=== PATIENT | male | born 1985 | race Caucasian/White ===

== ENCOUNTER 2018-06-19 08:50 | Emergency (ER) | payer MEDICAID ==
[~2018-06-19] VITALS: Ht 185.4 cm; Wt 72.6 kg
--- NOTE | 2018-06-19 09:27 | Emergency Room Report ---
History of Present Illness General Chief Complaint: Seizure Source: Patient Present Illness HPI Patient presents with reported seizure activity approximately 1 hour prior to arrival Patient is here from [facility] in a rehabilitation facility Reports that he has had alcohol withdrawal seizures in the past He has also had Valium withdrawal seizures in the past Currently felt some discomfort to the left temporal area after his seizure Otherwise denies any chest pain or shortness of breath He had some mild palpitation sensation Patient reports that he had fairly extensive workup about 3 months ago during his last seizure activity Allergies: Coded Allergies: TRAMADOL (Verified Allergy, Unknown, 06/19/18) Patient History Past Medical History: see triage record Pertinent Family History: none Reviewed Nursing Documentation: PMH: Agreed; PSxH: Agreed Nursing Documentation-PMH Past Medical History: No History, Except For Hx Seizures: Yes - from alcohol withdrawal Review of Systems All Other Systems: negative except mentioned in HPI Physical Exam Vital Signs Date Time Temp Pulse Resp B/P (MAP) Pulse Ox O2 Delivery O2 Flow Rate FiO2 06/19/18 08:54 97.5 81 18 133/86 97 Room Air Sp02 EP Interpretation: reviewed, normal General Appearance: well appearing, no apparent distress Head: normocephalic, atraumatic - Patient points to left temporal area for discomfort Eyes: bilateral eye PERRL, bilateral eye EOMI ENT: hearing grossly normal, normal pharynx, TMs + canals normal, uvula midline Neck: full range of motion, supple, no meningismus, no bony tend Respiratory: lungs clear, normal breath sounds, no rhonchi, no respiratory distress, no retraction, no accessory muscle use Cardiovascular #1: normal peripheral pulses, regular rate, rhythm, no edema, no gallop, no JVD, no murmur Gastrointestinal: normal bowel sounds, non tender, soft, no mass, no organomegaly, non-distended, no guarding, no hernia, no pulsatile mass, no rebound Genitourinary: no CVA tenderness Musculoskeletal: normal inspection Neurologic: oriented x3, responsive, 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 as tested, motor strength/ tone normal, sensory intact Psychiatric: mood/affect normal Skin: no rash, warm/dry, palpation normal, other - Mild nasal abrasion to bridgeof nose Lymphatic: normal inspection, no adenopathy Medical Decision Making Diagnostic Impression: Primary Impression: Seizure disorder ER Course Multiple differentials considered Patient withdraws close correlation with alcohol withdrawal in his seizure activity Reports extensive previous workup At this time blood work was initiated to evaluate for further pathology All within normal limits Patient does not appear to be in acute alcohol withdrawal symptoms Heart rate is normal there is lack of tremors Patient is awake and alert At this time stable for close follow-up, Labs Test 06/19/18 09:38 White Blood Count 11.2 K/UL (4.8-10.8) Red Blood Count 4.15 M/UL (4.70-6.10) Hemoglobin 13.3 G/DL (14.2-18.0) Hematocrit 39.1 % (42.0-52.0) Mean Corpuscular Volume 94 FL (80-99) Mean Corpuscular Hemoglobin 32.0 PG (27.0-31.0) Mean Corpuscular Hemoglobin Concent 33.9 G/DL (32.0-36.0) Red Cell Distribution Width 11.6 % (11.6-14.8) Platelet Count 321 K/UL (150-450) Mean Platelet Volume 6.2 FL (6.5-10.1) Neutrophils (%) (Auto) 77.0 % (45.0-75.0) Lymphocytes (%) (Auto) 16.7 % (20.0-45.0) Monocytes (%) (Auto) 5.0 % (1.0-10.0) Eosinophils (%) (Auto) 0.6 % (0.0-3.0) Basophils (%) (Auto) 0.7 % (0.0-2.0) Sodium Level 137 MMOL/L (136-145) Potassium Level 4.0 MMOL/L (3.5-5.1) Chloride Level 102 MMOL/L (98-107) Carbon Dioxide Level 27 MMOL/L (21-32) Anion Gap 8 mmol/L (5-15) Blood Urea Nitrogen 8 mg/dL (7-18) Creatinine 0.8 MG/DL (0.55-1.30) Estimat Glomerular Filtration Rate > 60 mL/min (>60) Glucose Level 91 MG/DL (74-106) Calcium Level 8.9 MG/DL (8.5-10.1) Rhythm Strip Diag. Results EP Interpretation: yes Rate: 60 Rhythm: NSR, no PVC's, no ectopy Last Vital Signs Date Time Temp Pulse Resp B/P (MAP) Pulse Ox O2 Delivery O2 Flow Rate FiO2 06/19/18 08:54 97.5 81 18 133/86 97 Room Air Status: improved Disposition: HOME, SELF-CARE Condition: Improved Scripts No Active Prescriptions or Reported Meds Additional Instructions: Patient is provided with the discharge instructions notified to follow up with primary doctor in the next 2-3 days otherwise return to the er with any worsening symptoms. Please note that this report is being documented using [email or web address] technology. This can lead to erroneous entry secondary to incorrect interpretation by the dictating instrument. Chely Pelayo DO Jun 19, 2018 09:27
[2018-06-19] MEDS ORDERED: LORazepam 1mg tab ORAL ONE ×2 (09:30→10:30)
[2018-06-19 09:50] LABS: BASOPHILS % (AUTO) 0.7 % (0.0-2.0); EOSINOPHILS % (AUTO) 0.6 % (0.0-3.0); HEMATOCRIT 39.1 % (42.0-52.0); HEMOGLOBIN 13.3 G/DL (14.2-18.0); LYMPHOCYTES % (AUTO) 16.7 % (20.0-45.0); MEAN CORPUSCULAR VOLUME 94 FL (80-99); PLATELET COUNT 321 K/UL (150-450); RED BLOOD COUNT 4.15 M/UL (4.70-6.10); RED CELL DISTRIBUTION WIDTH 11.6 % (11.6-14.8); WHITE BLOOD COUNT 11.2 K/UL (4.8-10.8)
[2018-06-19 10:06] LABS: ANION GAP 8 mmol/L (5-15); BLOOD UREA NITROGEN 8 mg/dL (7-18); CALCIUM 8.9 MG/DL (8.5-10.1); CARBON DIOXIDE 27 MMOL/L (21-32); CHLORIDE 102 MMOL/L (98-107); CREATININE 0.8 MG/DL (0.55-1.30); SODIUM 137 MMOL/L (136-145)
[2018-06-19 10:24] VITALS: BP 124/74
[2018-06-19 10:34] VITALS: BP 126/80
== END 2018-06-19 10:34 | disposition home or self-care (01) ==
LOC: EMR 09:31
DX: G40.909 Epilepsy, unspecified, not intractable, without status epilepticus (principal); Z88.6 Allergy status to analgesic agent; S00.31XA Abrasion of nose, initial encounter; X58.XXXA Exposure to other specified factors, initial encounter; Y92.9 Unspecified place or not applicable
CPT/HCPCS: 36415; 80048; 85025; 99283

== ENCOUNTER 2018-11-06 11:07 | Emergency (ER) | payer MEDICAID ==
[~2018-11-06] VITALS: Ht 185.4 cm; Wt 80.3 kg
[2018-11-06] MEDS ORDERED: IBUPROFEN600 MG ORAL (12:21)
[2018-11-06 15:01] VITALS: BP 108/71
[2018-11-06 15:02] VITALS: BP 108/71
--- NOTE | 2018-11-06 15:02 | NUR ---
ER DISCHARGE NOTE: Patient is cleared to be discharged per ERMD, pt is aox4, on room air, with stable vital signs. pt was given dc and prescription instructions, pt was able to verbalize understanding, pt is able to ambulate with steady gait. pt took all belongings.
--- NOTE | 2018-11-06 16:11 | Emergency Room Report ---
History of Present Illness General Chief Complaint: Pain Source: Patient Present Illness HPI Patient is a 33-year-old male presented after increased left-sided knee pain. Patient had prior injury to his knee and had previous ACL surgery. Patient stated this has been long-standing and he had noticed it was having increased swelling and discomfort when running marathons as well as playing basketball. Patient denies any recent injury. He had noted some intermittent swelling. He denies any ligamentous instability. Allergies: Coded Allergies: CODEINE (Verified Allergy, Unknown, 07/20/18) TRAMADOL (Verified Allergy, Unknown, 06/19/18) Patient History Reviewed Nursing Documentation: PMH: Agreed; PSxH: Agreed Nursing Documentation-PMH Past Medical History: No History, Except For Hx Seizures: Yes - from alcohol withdrawal Review of Systems All Other Systems: negative except mentioned in HPI Physical Exam Vital Signs Date Time Temp Pulse Resp B/P (MAP) Pulse Ox O2 Delivery O2 Flow Rate FiO2 11/06/18 11:23 98.2 59 16 97 Room Air 11/06/18 15:01 108/71 General Appearance: well appearing, no apparent distress, alert, GCS 15 Head: normocephalic, atraumatic ENT: hearing grossly normal, normal voice Neck: full range of motion, supple Respiratory: no respiratory distress, speaking full sentences Cardiovascular #1: normal inspection, no edema Gastrointestinal: normal inspection Musculoskeletal: no calf tenderness Neurologic: normal gait Psychiatric: mood/affect normal Skin: no rash Medical Decision Making Diagnostic Impression: Primary Impression: Knee pain, chronic ER Course . Patient presented for knee pain. Differential diagnosis include was not limited to meniscal injury, ligamentous damage, arthritis among others. Patient has a benign exam and does not appear to require any further imaging or laboratory testing at this time. Appear to have any evidence of acute injury requiring x-ray imaging. Patient appears to be able to ambulate well. Injury appears chronic. Patient was advised to follow-up for primary care referral to orthopedics. He was advised to return if he had any worsening of condition or other concerns. Last Vital Signs Date Time Temp Pulse Resp B/P (MAP) Pulse Ox O2 Delivery O2 Flow Rate FiO2 11/06/18 15:02 98.2 70 16 108/71 97 Room Air Status: improved Disposition: HOME, SELF-CARE Condition: Stable Scripts Ibuprofen* (MOTRIN*) 600 Mg Tablet 600 MG ORAL THREE TIMES A DAY, #30 TAB 0 Refills Prov: Isidro Newman MD 11/06/18 Referrals: NOT CHOSEN IPA/MD,REFERRING (PCP) Patient Instructions: Knee Pain, [id number] Additional Instructions: Follow up with primary care for orthopedics referral. Isidro Newman MD November 06, 2018 16:11
== END 2018-11-06 15:02 | disposition home or self-care (01) ==
LOC: EMR 12:21
DX: M25.562 Pain in left knee (principal); G89.29 Other chronic pain; Z88.5 Allergy status to narcotic agent
CPT/HCPCS: 99281

== ENCOUNTER 2019-01-11 22:54 | Emergency (ER) | payer MEDICAID ==
[~2019-01-11] VITALS: Ht 185.4 cm; Wt 81.6 kg
[~2019-01-11 22:54] MED LIST: IBUPROFEN600 MG ORAL
[2019-01-11 22:58] VITALS: BP 117/75
--- NOTE | 2019-01-11 23:11 | NUR ---
ED Nurse Note: Pt ambulated to ED from home c/o 4/10 L knee pain that started x3 days ago. Pt denies recent trauma but had a ACL-meniscus repair surgury 12yrs ago. Pt is A&Ox4, VSS
[2019-01-11] MEDS ORDERED: HYDROcodone/Acetamin 5/325 tab ORAL ONE (23:45)
--- NOTE | 2019-01-12 00:03 | Emergency Room Report ---
History of Present Illness General Chief Complaint: Lower Extremity Injury Source: Patient Present Illness HPI This is a 33-year-old male who presents with chief complaint of left knee pain. He has orthoscopic surgery to his ACL in the left knee before. He started a new job where he works in the [employer] and standing on his feet a lot. At the end of the day he started having some throbbing knee pain. This been ongoing for about a week. They got worse after he played some basketball over the weekend. Pain is diffuse in nature. Throbbing in nature. Worse with walking. He felt his knee giving out if he walks too much. No fevers or chills. No swelling. No direct trauma. Pain is 8 out of 10. Allergies: Coded Allergies: CODEINE (Verified Allergy, Unknown, 07/20/18) TRAMADOL (Verified Allergy, Unknown, 06/19/18) Patient History Past Medical History: see triage record, old chart reviewed Past Surgical History: other Pertinent Family History: none Social History: Denies: smoking Immunizations: other Reviewed Nursing Documentation: PMH: Agreed; PSxH: Agreed Nursing Documentation-PMH Hx Seizures: Yes - from alcohol withdrawal Review of Systems Eye: Denies: eye pain, blurred vision ENT: Denies: ear pain, nose congestion, throat swelling Respiratory: Denies: cough, shortness of breath Cardiovascular: Denies: chest pain, palpitations Gastrointestinal: Denies: abdominal pain, diarrhea, nausea, vomiting Musculoskeletal: Reports: joint pain; Denies: back pain Skin: Denies: rash Neurological: Denies: headache, numbness Endocrine: Denies: increased thirst, increased urine Hematologic/Lymphatic: Denies: easy bruising All Other Systems: negative except mentioned in HPI Physical Exam Vital Signs Date Time Temp Pulse Resp B/P (MAP) Pulse Ox O2 Delivery O2 Flow Rate FiO2 01/11/19 22:58 98.1 60 16 117/75 (89) 98 Room Air Vitals normal Sp02 EP Interpretation: reviewed, normal General Appearance: well appearing, no apparent distress, alert Head: normocephalic, atraumatic Eyes: bilateral eye PERRL, bilateral eye EOMI ENT: hearing grossly normal, normal pharynx Neck: full range of motion, supple, no meningismus Respiratory: chest non-tender, lungs clear, normal breath sounds Cardiovascular #1: regular rate, rhythm, no murmur Gastrointestinal: normal bowel sounds, non tender, no mass, no organomegaly, no bruit, non-distended Musculoskeletal: back normal, gait/station normal, normal range of motion, other - Left knee: Diffuse tenderness anteriorly. Knee is stable. No effusion. Psychiatric: mood/affect normal Medical Decision Making Diagnostic Impression: Primary Impression: Sprain of left knee Qualified Codes: S83.92XA - Sprain of unspecified site of left knee, initial encounter ER Course Patient with left knee pain. no frx or dislocation Other X-Ray Diagnostic Results Other X-Ray Diagnostic Results : X-Ray ordered: left knee xrays # of Views/Limited Vs Complete: 3 View Indication: Pain EP Interpretation: Yes Interpretation: no dislocation, no soft tissue swelling, no fractures Impression: No acute disease Electronically Signed by: Iain Castro MD Last Vital Signs Date Time Temp Pulse Resp B/P (MAP) Pulse Ox O2 Delivery O2 Flow Rate FiO2 01/11/19 22:58 98.1 60 16 117/75 (89) 98 Room Air Status: improved Disposition: HOME, SELF-CARE Condition: Stable Scripts Ibuprofen* (MOTRIN*) 600 Mg Tablet 600 MG ORAL THREE TIMES A DAY, #30 TAB 0 Refills Prov: Iain Castro MD 01/12/19 Referrals: NON PHYSICIAN (PCP) Patient Instructions: Knee Sprain Additional Instructions: Elevate leg. Ice pack to the area. Wear your knee brace. Follow-up with your doctor in a week. You may need an MRI if continue with pain. Return if worse. Iain Castro MD Jan 12, 2019 00:03
[2019-01-12] MEDS ORDERED: IBUPROFEN600 MG ORAL (00:35)
--- NOTE | 2019-01-12 00:42 | NUR ---
ER DISCHARGE NOTE: Patient is cleared to be discharged per ERMD, pt is aox4, on room air, with stable vital signs. pt was given dc and prescription instructions, pt was able to verbalize understanding, pt id band removed. pt is able to ambulate with steady gait on crutches. pt took all belongings.
--- NOTE | 2019-01-12 11:58 | Diagnostic Imaging Report ---
Indication: Knee pain, trauma one week ago Technique: 4 views of the left knee Comparison: None Findings: There is evidence of prior ligament repair. Surgical hardware is seen at the edge of the lateral distal femur and within the proximal tibia. There are degenerative changes of the medial joint compartment. There is a suprapatellar effusion. No acute fractures. No dislocations. Impression: Positive for joint effusion No acute bony trauma Evidence of prior surgery
== END 2019-01-12 00:40 | disposition home or self-care (01) ==
LOC: EMR 23:22
DX: S83.92XA Sprain of unspecified site of left knee, initial encounter (principal); X58.XXXA Exposure to other specified factors, initial encounter; Y92.9 Unspecified place or not applicable; Z88.6 Allergy status to analgesic agent
CPT/HCPCS: 99283

== ENCOUNTER 2019-02-13 15:23 | Emergency (ER) | payer MEDICAID ==
[~2019-02-13] VITALS: Ht 185.4 cm; Wt 79.4 kg
[2019-02-13 15:42] VITALS: BP 114/69
[2019-02-13] MEDS ORDERED: NKM (15:45)
--- NOTE | 2019-02-13 15:50 | NUR ---
ED Nurse Note: Patient walked into ED c/o RLQ abdominal pain, 09/14 at this time. patient reports that the pain started about a week ago. patient denies any nausea/vomiting/diarrhea. patient is alert awake x4 ambulatory, breathing unlabored and even.
--- NOTE | 2019-02-13 15:53 | NUR ---
ED Nurse Note: patient reports the pain ranges from 3-5 out of 10.
[2019-02-13] MEDS ORDERED: Isovue-300 100ml vial INJ PRN (16:15)
[2019-02-13] MEDS ORDERED: DiphenhydrAMINE 50mg/ml Inj IVP ONE (16:15)
--- NOTE | 2019-02-13 16:22 | Emergency Room Report ---
History of Present Illness General Chief Complaint: Abdominal Pain Source: Patient Present Illness HPI 33-year-old male presents with right middle abdominal pain achy in nature that started 7 days ago, no aggravating or relieving factors, severity is moderate, it lasts up to an hour or so, patient states it intimately comes and goes without any provocative factors. Patient denies any fevers chills chest pain shortness of breath diarrhea or dysuria patient denies any testicular pain patient presents for evaluation. Allergies: Coded Allergies: CODEINE (Verified Allergy, Unknown, 02/13/19) TRAMADOL (Verified Allergy, Unknown, 02/13/19) Patient History Past Medical History: see triage record Reviewed Nursing Documentation: PMH: Agreed; PSxH: Agreed Nursing Documentation-PMH Past Medical History: No History, Except For Hx Seizures: Yes - from alcohol withdrawal Review of Systems All Other Systems: negative except mentioned in HPI Physical Exam Vital Signs Date Time Temp Pulse Resp B/P (MAP) Pulse Ox O2 Delivery O2 Flow Rate FiO2 02/13/19 15:42 98.8 60 16 114/69 98 Room Air Sp02 EP Interpretation: reviewed, normal General Appearance: well appearing, no apparent distress, alert Head: normocephalic, atraumatic Eyes: bilateral eye PERRL, bilateral eye EOMI ENT: uvula midline, moist mucus membranes Neck: supple, thyroid normal, supple/symm/no masses Respiratory: lungs clear, no respiratory distress, no retraction, no accessory muscle use Cardiovascular #1: normal peripheral pulses, regular rate, rhythm, no edema, no gallop, no murmur Gastrointestinal: non tender, soft, no guarding, no rebound Musculoskeletal: normal inspection Neurologic: alert, oriented x3 Psychiatric: mood/affect normal Skin: no rash, warm/dry Medical Decision Making ER Course 33-year-old male presents with mid right lower abdominal pain, on the differential diagnosis includes appendicitis, diverticulitis, stump appendicitis , cholecystitis Patient with a negative Suárez's, negative labs, negative CT low suspicion for acute emergent intra-abdominal processes, patient's pain is well controlled, repeat abdominal exam patient's abdomen is soft nontender, will disposition patient home with return precautions Laboratory Tests Test 02/13/19 16:20 White Blood Count 7.8 K/UL (4.8-10.8) Red Blood Count 4.78 M/UL (4.70-6.10) Hemoglobin 14.4 G/DL (14.2-18.0) Hematocrit 43.5 % (42.0-52.0) Mean Corpuscular Volume 91 FL (80-99) Mean Corpuscular Hemoglobin 30.2 PG (27.0-31.0) Mean Corpuscular Hemoglobin Concent 33.2 G/DL (32.0-36.0) Red Cell Distribution Width 11.6 % (11.6-14.8) Platelet Count 193 K/UL (150-450) Mean Platelet Volume 6.9 FL (6.5-10.1) Neutrophils (%) (Auto) 61.8 % (45.0-75.0) Lymphocytes (%) (Auto) 29.1 % (20.0-45.0) Monocytes (%) (Auto) 6.7 % (1.0-10.0) Eosinophils (%) (Auto) 1.7 % (0.0-3.0) Basophils (%) (Auto) 0.7 % (0.0-2.0) Prothrombin Time 11.4 SEC (9.30-11.50) Prothrombin Time INR 1.1 (0.9-1.1) PTT 25 SEC (23-33) Urine Color Pale yellow Urine Appearance Clear Urine pH 7 (4.5-8.0) Urine Specific [place] 1.010 (1.005-1.035) Urine Protein Negative (NEGATIVE) Urine Glucose (UA) Negative (NEGATIVE) Urine Ketones Negative (NEGATIVE) Urine Blood Negative (NEGATIVE) Urine Nitrite Negative (NEGATIVE) Urine Bilirubin Negative (NEGATIVE) Urine Urobilinogen Normal MG/DL (0.0-1.0) Urine Leukocyte Esterase Negative (NEGATIVE) Sodium Level 138 MMOL/L (136-145) Potassium Level 3.9 MMOL/L (3.5-5.1) Chloride Level 103 MMOL/L (98-107) Carbon Dioxide Level 30 MMOL/L (21-32) Anion Gap 5 mmol/L (5-15) Blood Urea Nitrogen 18 mg/dL (7-18) Creatinine 1.2 MG/DL (0.55-1.30) Estimate Glomerular Filtration Rate > 60 mL/min (>60) Glucose Level 88 MG/DL (74-106) Calcium Level 9.5 MG/DL (8.5-10.1) Total Bilirubin 0.5 MG/DL (0.2-1.0) Aspartate Amino Transferase (AST) 19 U/L (15-37) Alanine Aminotransferase (ALT) 25 U/L (12-78) Alkaline Phosphatase 99 U/L (46-116) Total Protein 7.6 G/DL (6.4-8.2) Albumin 4.5 G/DL (3.4-5.0) Globulin 3.1 g/dL Albumin/Globulin Ratio 1.5 (1.0-2.7) Lipase 115 U/L (73-393) Urine Opiates Screen Negative (NEGATIVE) Urine Barbiturates Screen Negative (NEGATIVE) Phencyclidine (PCP) Screen Negative (NEGATIVE) Urine Amphetamines Screen Negative (NEGATIVE) Urine Benzodiazepines Screen Negative (NEGATIVE) Urine Cocaine Screen Negative (NEGATIVE) Urine Marijuana (THC) Screen Negative (NEGATIVE) EKG Diagnostic Results EKG Time: 16:22 EP Interpretation: NSR, rate 61, QTc 392, no acute ST elevations normal axis Rate: normal Rhythm: NSR ST Segments: no acute changes Rhythm Strip Diag. Results Rhythm Strip Time: 18:00 EP Interpretation: yes Rate: 84 Rhythm: NSR, no PVC's, no ectopy Chest X-Ray Diagnostic Results Chest X-Ray Diagnostic Results : Chest X-Ray Ordered: Yes # of Views/Limited/Complete: 1 View Indication: Other - abdominal pain EP Interpretation: Yes Interpretation: no acute cardiopulmonary disease Impression: No acute disease Electronically Signed by: Vincent Carlton MD CT/MRI/US Diagnostic Results CT/MRI/US Diagnostic Results : Impression EXAM: CT Abdomen and Pelvis With Intravenous Contrast CLINICAL HISTORY: PAIN TECHNIQUE: Axial computed tomography images of the abdomen and pelvis with intravenous contrast. CTDI is 0.15, 12.77 mGy and DLP is 678 mGy-cm. One or more of the following dose reduction techniques were used: automated exposure control, adjustment of the mA and/or kV according to patient size, use of iterative reconstruction technique. COMPARISON: No relevant prior studies available. FINDINGS: Lung bases: Unremarkable. No mass. No consolidation. ABDOMEN: Liver: Subsequent centimeter foci of hypoattenuation in the liver are too small to characterize. Gallbladder and bile ducts: Unremarkable. No calcified stones. Pancreas: Unremarkable. Spleen: Unremarkable. Adrenals: Unremarkable. Kidneys and ureters: Unremarkable. No solid mass. No hydronephrosis. Stomach and bowel: Unremarkable. Bowel is nondilated. PELVIS: Appendix: No findings to suggest acute appendicitis. Bladder: Unremarkable. Reproductive: Unremarkable as visualized. ABDOMEN and PELVIS: Intraperitoneal space: Unremarkable. No free air. Bones/joints: No acute osseous abnormality. Soft tissues: Unremarkable. Vasculature: Unremarkable. No abdominal aortic aneurysm. Lymph nodes: Unremarkable. IMPRESSION: No acute findings. Radiologist: Deja Juares MD Electronically Signed: 02/13/19 17:57 Study ready at 17:36 and initial results transmitted at 17:57 Last Vital Signs Date Time Temp Pulse Resp B/P (MAP) Pulse Ox O2 Delivery O2 Flow Rate FiO2 02/13/19 15:54 60 16 Room Air 02/13/19 15:42 98.8 114/69 (84) 98 Disposition: HOME, SELF-CARE Condition: Stable Scripts Famotidine (PEPCID AC) 20 Mg Tablet 20 MG PO BID, #60 TAB Prov: Vincent Carlton MD 02/13/19 Naproxen* (NAPROSYN*) 250 Mg Tablet 250 MG ORAL BID PRN for For Pain, #20 TAB 0 Refills Prov: Vincent Carlton MD 02/13/19 Referrals: [facility] Derrell Gomez. [facility] Patient Instructions: Abdominal Pain, Adult Additional Instructions: The patient was provided with discharge instructions, notified to follow-up with a primary care doctor and or specialist in the next 24-48 hours, and to return to the ED if they have worsening of their symptoms. Please note that this report is being documented using [employer] technology. This can lead to erroneous entry secondary to incorrect interpretation by the dictating instrument. Vincent Carlton MD Feb 13, 2019 16:22
[2019-02-13 16:35] LABS: BASOPHILS % (AUTO) 0.7 % (0.0-2.0); EOSINOPHILS % (AUTO) 1.7 % (0.0-3.0); HEMATOCRIT 43.5 % (42.0-52.0); HEMOGLOBIN 14.4 G/DL (14.2-18.0); LYMPHOCYTES % (AUTO) 29.1 % (20.0-45.0); MEAN CORPUSCULAR VOLUME 91 FL (80-99); MONOCYTES % (AUTO) 6.7 % (1.0-10.0); NEUTROPHILS % (AUTO) 61.8 % (45.0-75.0); PLATELET COUNT 193 K/UL (150-450); RED BLOOD COUNT 4.78 M/UL (4.70-6.10); RED CELL DISTRIBUTION WIDTH 11.6 % (11.6-14.8); WHITE BLOOD COUNT 7.8 K/UL (4.8-10.8)
--- NOTE | 2019-02-13 16:45 | Diagnostic Imaging Report ---
Indication: Chest pain Technique: XRAY Chest 1v Comparison: None Findings: Heart size and mediastinal contours are within normal limits for AP technique. There is no focal airspace consolidation, pneumothorax or pleural effusion. Osseous structures demonstrate no acute abnormality. Impression: No radiographic evidence of acute cardiopulmonary disease.
[2019-02-13 16:49] LABS: ANION GAP 5 mmol/L (5-15); BLOOD UREA NITROGEN 18 mg/dL (7-18); CALCIUM 9.5 MG/DL (8.5-10.1); CARBON DIOXIDE 30 MMOL/L (21-32); CHLORIDE 103 MMOL/L (98-107); CREATININE 1.2 MG/DL (0.55-1.30); POTASSIUM 3.9 MMOL/L (3.5-5.1); SODIUM 138 MMOL/L (136-145)
[2019-02-13 16:50] LABS: APPEARANCE,URINE CLEAR; BILIRUBIN, URINE NEGATIVE (NEGATIVE); COLOR,URINE PALE YELLOW; GLUCOSE, URINE (UA) NEGATIVE (NEGATIVE); KETONES,URINE NEGATIVE (NEGATIVE); LEUKOCYTE ESTERASE ,URINE NEGATIVE (NEGATIVE); NITRITE,URINE NEGATIVE (NEGATIVE); PH,URINE 7 (4.5-8.0); PROTEIN,URINE NEGATIVE (NEGATIVE); UROBILINOGEN,URINE NORMAL MG/DL (0.0-1.0)
[2019-02-13 16:59] LABS: ALANINE AMINOTRANSFERASE 25 U/L (12-78); ALBUMIN 4.5 G/DL (3.4-5.0); ALBUMIN/GLOBULIN RATIO 1.5 (1.0-2.7); ALKALINE PHOSPHATASE 99 U/L (46-116); ASPARTATE AMINO TRANSFERASE 19 U/L (15-37); BILIRUBIN,TOTAL 0.5 MG/DL (0.2-1.0); INR 1.1 (0.9-1.1)
--- NOTE | 2019-02-13 17:57 | Diagnostic Imaging Report ---
EXAM: CT Abdomen and Pelvis With Intravenous Contrast CLINICAL HISTORY: PAIN TECHNIQUE: Axial computed tomography images of the abdomen and pelvis with intravenous contrast. CTDI is 0.15, 12.77 mGy and DLP is 678 mGy-cm. One or more of the following dose reduction techniques were used: automated exposure control, adjustment of the mA and/or kV according to patient size, use of iterative reconstruction technique. COMPARISON: No relevant prior studies available. FINDINGS: Lung bases: Unremarkable. No mass. No consolidation. ABDOMEN: Liver: Subsequent centimeter foci of hypoattenuation in the liver are too small to characterize. Gallbladder and bile ducts: Unremarkable. No calcified stones. Pancreas: Unremarkable. Spleen: Unremarkable. Adrenals: Unremarkable. Kidneys and ureters: Unremarkable. No solid mass. No hydronephrosis. Stomach and bowel: Unremarkable. Bowel is nondilated. PELVIS: Appendix: No findings to suggest acute appendicitis. Bladder: Unremarkable. Reproductive: Unremarkable as visualized. ABDOMEN and PELVIS: Intraperitoneal space: Unremarkable. No free air. Bones/joints: No acute osseous abnormality. Soft tissues: Unremarkable. Vasculature: Unremarkable. No abdominal aortic aneurysm. Lymph nodes: Unremarkable. IMPRESSION: No acute findings.
[2019-02-13] MEDS ORDERED: PEPCID AC20 M2 PO (17:59)
[2019-02-13] MEDS ORDERED: NAPROXEN250 MG ORAL (17:59)
[2019-02-13] MEDS ORDERED: Morphine Sulfate 4mg/ml Inj (IV USE ONLY) IVP ONE (18:00)
--- NOTE | 2019-02-13 18:12 | NUR ---
ED Nurse Note: Dr. Carlton cancelled Morphine IVP order verbally as patient's CT scan is negative, patient is cleared for discharge.
[2019-02-13 18:13] VITALS: BP 114/69
--- NOTE | 2019-02-13 18:13 | NUR ---
ER DISCHARGE NOTE: Patient is cleared to be discharged per ERMD DR DUNCAN, pt is aox4, on room air, with stable vital signs. pt was given dc and prescription instructions, pt was able to verbalize understanding, pt id band and iv site removed without complications. pt is able to ambulate with steady gait. pt took all belongings.
== END 2019-02-13 18:10 | disposition home or self-care (01) ==
LOC: EMR 16:58
DX: R10.31 Right lower quadrant pain (principal); Z88.5 Allergy status to narcotic agent
CPT/HCPCS: 36415; 71045; 74177; 80053; 80307; 81003; 83690; 85025; 85610; 85730; 93005; 96361; 96374; 96375; 99284; J1200; J2405; Q9967

== ENCOUNTER 2019-03-13 01:15 | Emergency (ER) | payer MEDICAID ==
[~2019-03-13] VITALS: Ht 185.4 cm; Wt 79.4 kg
[~2019-03-13 01:15] MED LIST changes: +NAPROXEN250 MG ORAL; +NKM; +PEPCID AC20 M2 PO
[2019-03-13 01:25] VITALS: BP 155/88
--- NOTE | 2019-03-13 01:27 | NUR ---
ED Nurse Note: Patient walked into ER c/o abdominal pain x 3days. Stated that was diagnosed with abdominal hernia. AAO x4, VSS at this time, skin is dry warm to touch.
[2019-03-13] MEDS ORDERED: Ketorolac 30mg Inj IV ONE (02:15)
[2019-03-13 02:20] LABS: BASOPHILS % (AUTO) 0.7 % (0.0-2.0); EOSINOPHILS % (AUTO) 2.8 % (0.0-3.0); HEMATOCRIT 41.1 % (42.0-52.0); HEMOGLOBIN 14.7 G/DL (14.2-18.0); LYMPHOCYTES % (AUTO) 36.1 % (20.0-45.0); MEAN CORPUSCULAR VOLUME 86 FL (80-99); NEUTROPHILS % (AUTO) 53.5 % (45.0-75.0); PLATELET COUNT 190 K/UL (150-450); RED BLOOD COUNT 4.77 M/UL (4.70-6.10); RED CELL DISTRIBUTION WIDTH 10.6 % (11.6-14.8); WHITE BLOOD COUNT 10.5 K/UL (4.8-10.8)
[2019-03-13 02:25] LABS: APPEARANCE,URINE CLEAR; BILIRUBIN, URINE NEGATIVE (NEGATIVE); COLOR,URINE PALE YELLOW; GLUCOSE, URINE (UA) NEGATIVE (NEGATIVE); KETONES,URINE NEGATIVE (NEGATIVE); LEUKOCYTE ESTERASE ,URINE NEGATIVE (NEGATIVE); NITRITE,URINE NEGATIVE (NEGATIVE); PH,URINE 6.5 (4.5-8.0); PROTEIN,URINE NEGATIVE (NEGATIVE); UROBILINOGEN,URINE NORMAL MG/DL (0.0-1.0)
[2019-03-13 02:28] LABS: ANION GAP 13 mmol/L (5-15); BLOOD UREA NITROGEN 19 mg/dL (7-18); CALCIUM 9.4 MG/DL (8.5-10.1); CARBON DIOXIDE 26 MMOL/L (21-32); CHLORIDE 103 MMOL/L (98-107); CREATININE 1.2 MG/DL (0.55-1.30); INR 1.1 (0.9-1.1); POTASSIUM 3.8 MMOL/L (3.5-5.1); SODIUM 142 MMOL/L (136-145)
[2019-03-13 02:33] LABS: ALANINE AMINOTRANSFERASE 26 U/L (12-78); ALBUMIN 4.3 G/DL (3.4-5.0); ALBUMIN/GLOBULIN RATIO 1.3 (1.0-2.7); ALKALINE PHOSPHATASE 87 U/L (46-116); ASPARTATE AMINO TRANSFERASE 20 U/L (15-37); BILIRUBIN,TOTAL 0.5 MG/DL (0.2-1.0)
[2019-03-13 04:25] VITALS: BP 155/88
--- NOTE | 2019-03-13 04:36 | Diagnostic Imaging Report ---
Indication: Abdominal pain Technique: Continuous helical transaxial imaging of the abdomen and pelvis was obtained from the lung bases to the pubic symphysis during intravenous contrast administration. Coronal 2-D reformats were also obtained. Study obtained in a Siemens sensation [address] Automatic Exposure Control was utilized. Total Dose length Product (DLP): 554.[address] Dose Index Volume (CTDIvol): 10.55 mGy Comparison: 02/13/2019 Findings: The lung bases are clear. The liver and spleen, kidneys, gallbladder and pancreas, adrenal glands appear unremarkable. Bowel gas pattern is nonobstructive. The appendix is demonstrated and appears normal. There is no ascites. Bladder is unremarkable. IMPRESSION: Negative contrast-enhanced CT of abdomen and pelvis. No interval change. [facility] has communicated the preliminary results to the Emergency Department. Their findings are largely concordant with this report. The CT scanner at [facility] is accredited by the [employer] and the scans are performed using dose optimization techniques as appropriate to a performed exam including Automatic Exposure control.
[2019-03-13] MEDS ORDERED: CEPHALEXIN500 MG ORAL ×2 (04:48)
[2019-03-13] MEDS ORDERED: COLACE100 MG ORAL ×2 (04:49)
[2019-03-13] MEDS ORDERED: LACTULOSE20 GM/301 ORAL (05:09)
[2019-03-13] MEDS ORDERED: DOXYCYCLINE MO100 MG ORAL (05:09)
[2019-03-13] MEDS ORDERED: cefTRIAXone 1 GM in NS 55 ML IVPB ONE (05:30)
--- NOTE | 2019-03-13 05:30 | Emergency Room Report ---
History of Present Illness General Chief Complaint: Abdominal Pain Source: Medical Record Present Illness HPI Patient is a 33-year-old male presents after worsening right lower abdominal pain. Patient reports having increased pain worse with movement. He states that he has been having normal bowel movements. He denies any diarrhea. He states is been fairly regular. He denies any vomiting. He reports having severe pain worse with Valsalva. He recently seen his primary care physician was diagnosed with a hernia. He denies any fever. He reports having recent unprotected intercourse prior to episode of onset of pain. He states that he had noticed some increased testicular discomfort and had recent laboratory testing for STI performed. He reports having some increased dysuria. He denies any vomiting or weight loss. Patient had recent CT imaging.Visit to this hospital for similar symptoms. Allergies: Coded Allergies: CODEINE (Verified Allergy, Unknown, 02/13/19) TRAMADOL (Verified Allergy, Unknown, 02/13/19) Patient History Past Medical History: see triage record Reviewed Nursing Documentation: PMH: Agreed; PSxH: Agreed Nursing Documentation-PMH Past Medical History: No History, Except For Hx Seizures: Yes - from alcohol withdrawal Review of Systems All Other Systems: negative except mentioned in HPI Physical Exam Vital Signs Date Time Temp Pulse Resp B/P (MAP) Pulse Ox O2 Delivery O2 Flow Rate FiO2 03/13/19 01:17 98.6 84 18 155/88 (110) 98 Room Air Sp02 EP Interpretation: reviewed, normal General Appearance: normal inspection, well appearing, no apparent distress, alert, GCS 15 Head: atraumatic ENT: normal ENT inspection, hearing grossly normal, normal voice Neck: normal inspection, full range of motion, supple, no bony tend Respiratory: normal inspection, lungs clear, normal breath sounds, no respiratory distress, no retraction, no wheezing Cardiovascular #1: regular rate, rhythm, no edema Gastrointestinal: normal inspection, normal bowel sounds, non tender, soft, no guarding, no hernia, tenderness - right lower abdomen Genitourinary: no CVA tenderness, penis normal Musculoskeletal: normal inspection, back normal, normal range of motion Neurologic: normal inspection, alert, oriented x3, responsive, housekeeper head III-XII nml as tested, speech normal Psychiatric: normal inspection, judgement/insight normal, mood/affect normal Medical Decision Making Diagnostic Impression: Primary Impression: Nonspecific abdominal pain ER Course Patient presented for abdominal pain. Differential diagnoses included ischemic bowel, appendicitis, perforated viscus, abdominal aortic aneurysm, inferior myocardial infarction, viral gastroenteritis among others. Because of complexity of patient's case laboratory tests and imaging studies were ordered. Patient did not have significant tenderness in the right lower quadrant. Patient's pain course is concerning for possible appendicitis. CT imaging was repeated with oral contrast. CT of the abdomen pelvis read by radiology showed no evidence of acute appendicitis. Patient was noted to have some nonspecific changes on CT. Patient was given Rocephin as well as doxycycline due to possible STI symptoms. Patient was advised to follow-up with his primary care physician for further evaluation and possible referral to GI. He is advised to return if worse. Patient appears to be stable for outpatient management. Labs Test 03/13/19 01:50 White Blood Count 10.5 K/UL (4.8-10.8) Red Blood Count 4.77 M/UL (4.70-6.10) Hemoglobin 14.7 G/DL (14.2-18.0) Hematocrit 41.1 % (42.0-52.0) Mean Corpuscular Volume 86 FL (80-99) Mean Corpuscular Hemoglobin 30.9 PG (27.0-31.0) Mean Corpuscular Hemoglobin Concent 35.9 G/DL (32.0-36.0) Red Cell Distribution Width 10.6 % (11.6-14.8) Platelet Count 190 K/UL (150-450) Mean Platelet Volume 6.4 FL (6.5-10.1) Neutrophils (%) (Auto) 53.5 % (45.0-75.0) Lymphocytes (%) (Auto) 36.1 % (20.0-45.0) Monocytes (%) (Auto) 7.0 % (1.0-10.0) Eosinophils (%) (Auto) 2.8 % (0.0-3.0) Basophils (%) (Auto) 0.7 % (0.0-2.0) Prothrombin Time 11.4 SEC (9.30-11.50) Prothromb Time International Ratio 1.1 (0.9-1.1) Activated Partial Thromboplast Time 26 SEC (23-33) Urine Color Pale yellow Urine Appearance Clear Urine pH 6.5 (4.5-8.0) Urine Specific [place] 1.010 (1.005-1.035) Urine Protein Negative (NEGATIVE) Urine Glucose (UA) Negative (NEGATIVE) Urine Ketones Negative (NEGATIVE) Urine Blood Negative (NEGATIVE) Urine Nitrite Negative (NEGATIVE) Urine Bilirubin Negative (NEGATIVE) Urine Urobilinogen Normal MG/DL (0.0-1.0) Urine Leukocyte Esterase Negative (NEGATIVE) Sodium Level 142 MMOL/L (136-145) Potassium Level 3.8 MMOL/L (3.5-5.1) Chloride Level 103 MMOL/L (98-107) Carbon Dioxide Level 26 MMOL/L (21-32) Anion Gap 13 mmol/L (5-15) Blood Urea Nitrogen 19 mg/dL (7-18) Creatinine 1.2 MG/DL (0.55-1.30) Estimat Glomerular Filtration Rate > 60 mL/min (>60) Glucose Level 93 MG/DL (74-106) Calcium Level 9.4 MG/DL (8.5-10.1) Total Bilirubin 0.5 MG/DL (0.2-1.0) Aspartate Amino Transf (AST/SGOT) 20 U/L (15-37) Alanine Aminotransferase (ALT/SGPT) 26 U/L (12-78) Alkaline Phosphatase 87 U/L (46-116) Total Protein 7.5 G/DL (6.4-8.2) Albumin 4.3 G/DL (3.4-5.0) Globulin 3.2 g/dL Albumin/Globulin Ratio 1.3 (1.0-2.7) Lipase 110 U/L (73-393) Last Vital Signs Date Time Temp Pulse Resp B/P (MAP) Pulse Ox O2 Delivery O2 Flow Rate FiO2 03/13/19 04:25 98.6 96 18 155/88 98 Room Air Status: improved Disposition: HOME, SELF-CARE Condition: Stable Scripts Lactulose (LACTULOSE*) 20 Gm/30 Ml Solution 15 ML ORAL ONCE for constipation, #60 ML 0 Refills Prov: Isidro Newman MD 03/13/19 Doxycycline Monohydrate* (DOXYCYCLINE MONOHYDRATE*) 100 Mg Capsule 100 MG ORAL TWICE A DAY, #14 CAP 0 Refills Prov: Isidro Newman MD 03/13/19 Patient Instructions: Abdominal Pain, Adult Additional Instructions: Follow up with your doctor for recheck. Return if persistent vomiting, fever or other concerns. Isidro Newman MD Mar 13, 2019 05:30
--- NOTE | 2019-03-13 05:33 | NUR ---
ED Nurse Note: Patient is getting antibiotic, VSS at ths time, deny pain.
[2019-03-13 06:06] VITALS: BP 155/88
--- NOTE | 2019-03-13 06:07 | NUR ---
ER DISCHARGE NOTE: Patient is cleared to be discharged per ERMD, pt is aox4, on room air, with stable vital signs. pt was given dc and prescription instructions, pt was able to verbalize understanding, pt id band and iv site removed without complications. pt is able to ambulate with steady gait. pt took all belongings.
== END 2019-03-13 06:07 | disposition home or self-care (01) ==
LOC: EDBD 01:15 → EMR 01:30
DX: R10.31 Right lower quadrant pain (principal); Z88.6 Allergy status to analgesic agent
CPT/HCPCS: 36415; 74177; 80053; 81003; 83690; 85025; 85610; 85730; 86850; 86900; 86901; 96361; 96365; 96375; 99284; J0696; J1885; J2405; Q9967